=== PATIENT | male | born 1965 | race Caucasian/White ===

== ENCOUNTER 2020-10-24 09:28 | Outpatient (CLI) | payer BC, SELFPAY ==
--- NOTE | 2020-10-24 09:32 | EST_ITS ---
Patient Info Name: Víctor Del Toro Age: 54 years : 1965 Gender: Male Ht: 71 in Wt: 187 lbs BSA: 2.07 m2 Exam Date: 10/24/2020 10:14 AM Exam Location: [facility] Pulmonary Patient Status: Outpatient Admit Date: 10/24/2020 Staff Ordering Physician: Charles Begum DO [employer]: Abram Stacy RDCS, RT Attending Provider: FORTUNATO CAGLE Referring Physician: Shy CUNNINGHAM; Exercise Technologist: Abram Stacy RDCS, RT Exercise Physician: Fortunato aCgle DO Exam Type: CA stress echo Study Info Indications R06.00 - Dyspnea, unspecified Treadmill exercise stress echocardiogram is performed. Summary 1. 1. Negative Luis Enrique exercise stress test for ischemic ST changes by ECG criteria. 2. 2. Good functional capacity, achieving 17 METs of workload. 3. 3. Appropriate HR response to exercise. 4. 4. Appropriate HR recovery at 1 minute post exercise. 5. 5. Negative stress echocardiogram for ischemia by wall motion analysis. 6. 6. Patient informed of the above results. Stress Echo Findings Left Ventricle Appropriate increase in LV endocardial thickening with systole. Appropriate augmentation of contractility with systole. No wall motion abnormality. Left Ventricle Normal LV systolic function, no wall motion abnormality. Protocol: Luis Enrique Stress ECG Details Stage: REST Duration (min): 1 min : 12 sec Speed (mph): 0.0 Grade (%): 0 HR (bpm): 52 SBP (mmHg): 111 DBP (mmHg): 74 METS: --- Stage: REST Duration (min): 1 min : 20 sec Speed (mph): 0.0 Grade (%): 0 HR (bpm): 53 SBP (mmHg): 111 DBP (mmHg): 74 METS: --- Stage: REST Duration (min): 9 min : 33 sec Speed (mph): 0.0 Grade (%): 0 HR (bpm): 52 SBP (mmHg): 111 DBP (mmHg): 74 METS: --- Stage: STAGE 1 Duration (min): 1 min : 0 sec Speed (mph): 1.7 Grade (%): 10 HR (bpm): 81 SBP (mmHg): 111 DBP (mmHg): 74 METS: --- Stage: STAGE 1 Duration (min): 2 min : 0 sec Speed (mph): 1.7 Grade (%): 10 HR (bpm): 93 SBP (mmHg): 111 DBP (mmHg): 74 METS: --- Stage: STAGE 1 Duration (min): 3 min : 0 sec Speed (mph): 1.7 Grade (%): 10 HR (bpm): 96 SBP (mmHg): 156 DBP (mmHg): 74 METS: --- Stage: STAGE 2 Duration (min): 1 min : 0 sec Speed (mph): 2.5 Grade (%): 12 HR (bpm): 102 SBP (mmHg): 156 DBP (mmHg): 74 METS: --- Stage: STAGE 2 Duration (min): 2 min : 0 sec Speed (mph): 2.5 Grade (%): 12 HR (bpm): 108 SBP (mmHg): 152 DBP (mmHg): 75 METS: --- Stage: STAGE 2 Duration (min): 3 min : 0 sec Speed (mph): 2.5 Grade (%): 12 HR (bpm): 111 SBP (mmHg): 152 DBP (mmHg): 75 METS: --- Stage: STAGE 3 Duration (min): 1 min : 0 sec Speed (mph): 3.4 Grade (%): 14 HR (bpm): 114 SBP (mmHg): 164 DBP (mmHg): 73 METS: --- Stage: STAGE 3 Duration (min): 2 min : 0 sec Speed (mph): 3.4 Grade (%): 14
== END 2020-10-24 09:29 | disposition home or self-care (01) ==
PROVIDERS: Family Provider Internal Medicine; PCP Internal Medicine; Visit Provider Internal Medicine
DX: R06.00 Dyspnea, unspecified (principal)
CPT/HCPCS: 93351

== ENCOUNTER 2021-01-03 10:37 | Outpatient (CLI) | payer BC, SELFPAY ==
--- NOTE | ~2021-01-03 | CT_ITS ---
EXAMINATION: CT BRAIN W/O DATE: 01/03/2021 11:20 INDICATION: Nonspecific mental disorder TECHNIQUE: Computed tomography (CT) of the head was performed without and with 100 cc Omnipaque 350 i ntravenous contrast. The dose-length product was 1362.00 mGy-cm. Automated exposure control and itera tive reconstruction technique were employed. COMPARISON: No prior studies for comparison. FINDINGS: Normal brain parenchymal volume for age. Normal caballero-white differentiation. No acute intrac ranial hemorrhage, infarction, mass or mass effect. No abnormal contrast enhancement. No ventriculomegaly or midline shift. Midline sagittal images demonstrate a normal corpus callosum, c raniovertebral junction and sella turcica. Basilar cisterns are patent. Paranasal sinuses and mastoids are pneumatized. No depressed skull fractures. IMPRESSION: 1. No significant intracranial abnormality. Reviewed, dictated and finalized at location B.
== END 2021-01-03 10:38 | disposition home or self-care (01) ==
PROVIDERS: PCP Internal Medicine; Visit Provider Internal Medicine
DX: F48.8 Other specified nonpsychotic mental disorders (principal); R41.3 Other amnesia; R51.9 Headache, unspecified
CPT/HCPCS: 70470; Q9967

== ENCOUNTER → 2021-05-04 01:02 | Outpatient (CLI) | payer BC, SELFPAY ==
[2021-05-04 18:26] LABS: SARS-CoV-2 RNA PCR Negative
== END ==
PROVIDERS: PCP Internal Medicine; Visit Provider Internal Medicine Gastroenterology
DX: Z01.812 Encounter for preprocedural laboratory examination (principal); Z20.822 Contact with and (suspected) exposure to COVID-19
CPT/HCPCS: C9803; U0003; U0005

== ENCOUNTER 2021-05-08 01:35 | Day surgery (SDC) | payer BC, SELFPAY ==
[2021-04-25 15:38] VITALS: BMI 25.8
[2021-05-08 11:07] VITALS: BP 99/69; PULSE 58; RESP 16; TEMP 36; O2SAT 100; BMI 25.9
[2021-05-08] MEDS: LACTATED RINGERS 1,000 ML 150 ML IV CONT (11:26)
--- NOTE | 2021-05-08 11:48 | WPDANESEPPF ---
Anes - Initial Pre Proc Eval Procedure: Operation Date: 05/08/21 12:00 Proposed Procedures p Screening Colonoscopy - Alcon Kamara MD Date/Time: 05/08/21 11:48 Surgeon: Alcon Kamara MD Pre Op Diagnosis: hx of colon polyps Patient Data Age: 55 Gender: M Height: 1.8 m Weight: 84.6 kg Last Vital Signs Temp 36.0 C L 05/08/21 11:07 Pulse 58 L 05/08/21 11:07 Resp 16 05/08/21 11:07 BP 99/69 L 05/08/21 11:07 Pulse Ox 100 05/08/21 11:07 Allergies Allergy/AdvReac Type Severity Reaction Status Date / Time cortisone Allergy Mild Hives, Verified 05/08/21 11:07 anaphylatic shock Home Medications Medication Instructions Recorded Confirmed Type multivitamin 1 tablet PO DAILY 09/27/19 05/08/21 History lactobacillus combination no.8 1 cell PO DAILY 04/25/21 05/08/21 History [Adult Probiotic] Patient hx anesthesia problems: none Family hx anesthesia problems: none PMFSH Past Medical History Medical History (Updated 05/08/21 @ 11:55 by Malik Schmitz MD) FULTON (dyspnea on exertion) Hx of hypercholesterolemia Prostate cancer Family History Family History Sibling Family history of multiple sclerosis Father Malignant neoplasm of prostate Mother , Passed of Heart attack. Hypertension Acute myocardial infarction Social History Social History Smoking status: Never smoker Second hand tobacco smoke exposure: No Alcohol intake: current Substance use: never Living arrangements: alone Spiritual care concerns: No Anes - Eval Final PreProcedure Day of Procedure 05/08/21 11:48 Patient weight: normal Heart: regular rate and rhythm Lungs: clear to auscultation and normal air movement Airway: Mallampati scale class II Neurological: alert and oriented Last oral intake: >/= 8 hours ASA classification: II Emergent: no Anesthetic plan: proceed Anesthesia type and monitoring: general GIVS Informed Consent: The patient's anesthetic plan and its attendant risks and benefits were discussed with the patient/family/POA. Questions were solicited and answers provided to the satisfaction of the patient/family/POA.
[2021-05-08 12:32] VITALS: BP 92/60; PULSE 66; RESP 18; O2SAT 98
[2021-05-08 12:42] VITALS: BP 118/75; PULSE 76; RESP 20; O2SAT 99
[2021-05-08 12:52] VITALS: BP 115/78; PULSE 72; RESP 20; O2SAT 100
--- NOTE | 2021-05-13 12:57 | PM.HPGS ---
History of Present Illness History of Present Illness Consent: Risks, benefits, and alternatives have been discussed and questions answered. Patient agrees to proceed with procedure. Chief complaint: hx of colon polyps Narrative: Víctor Del Toro is a 55 year old male referred for colon cancer screening. He does have a history of polyps. Review of Systems Review of Systems: All systems reviewed & are unremarkable except as noted in HPI and below PMFSH Past Medical History Medical History FULTON (dyspnea on exertion) Hx of hypercholesterolemia Prostate cancer Family History Family History Sibling Family history of multiple sclerosis Father Malignant neoplasm of prostate Mother , Passed of Heart attack. Hypertension Acute myocardial infarction Social History Social History Smoking status: Never smoker Second hand tobacco smoke exposure: No Alcohol intake: current Substance use: never Spiritual care concerns: No Meds Home Medications and Allergies Home Medications Medication Instructions Recorded Confirmed Type multivitamin 1 tablet PO DAILY 09/27/19 05/08/21 History lactobacillus combination no.8 1 cell PO DAILY 04/25/21 05/08/21 History Allergies Allergy/AdvReac Type Severity Reaction Status Date / Time cortisone Allergy Mild Hives, Verified 05/08/21 11:07 anaphylatic shock Exam Resp: Auscultation: clear to auscultation bilaterally Cardio: Rate: regular rate Rhythm: regular rhythm GI: GI Palp: Yes Soft to palpation and No Tenderness to palpation present (GI) Assessment and Plan Assessment and plan (1) Colon cancer screening: Code(s): Z12.11 - Encounter for screening for malignant neoplasm of colon Status: Acute Assessment and Plan: Colonoscopy with possible biopsy or polypectomy or cautery or injection of substances.
== END 2021-05-08 13:08 | disposition home or self-care (01) ==
PROVIDERS: PCP Internal Medicine; Visit Provider Internal Medicine Gastroenterology
PROC: 0DJD8ZZ Inspection of Lower Intestinal Tract, Via Natural or Artificial Opening Endoscopic (ICD-10-PCS; CPT 45378; principal; 2021-05-08 12:00)
DX: Z12.11 Encounter for screening for malignant neoplasm of colon (principal); Z86.010 Personal history of colon polyps; Z85.46 Personal history of malignant neoplasm of prostate
CPT/HCPCS: 45378; J2704; J7120

== ENCOUNTER 2021-05-10 09:44 | Outpatient (CLI) | payer BC, SELFPAY ==
--- NOTE | ~2021-05-10 | CT_ITS ---
EXAMINATION: CT abdomen pelvis w con INDICATION: Prostate cancer TECHNIQUE: Computed tomographic images of the abdomen and pelvis were obtained after the administrati on of 100 cc of Omnipaque 350 intravenous contrast. The dose-length product (DLP) was 436.35 mGy-cm. Automated exposure control and iterative reconstruction technique were employed. COMPARISON: 07/25/2015 11/21/2010 FINDINGS: The lung bases are clear. The heart size is normal. There is a 1.2 cm hemangioma in the rig ht hepatic lobe. The spleen, pancreas, gallbladder, and adrenal glands are normal. The kidneys are un remarkable. No pathologically enlarged abdominal or pelvic lymph nodes are identified. There is no fr ee intraperitoneal gas or evidence of bowel obstruction. A moderate volume of colonic stool is presen t. 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 There is mild lumbar spondylosis. IMPRESSION: 1. No evidence of metastatic disease. Reviewed, dictated and finalized at location A.
--- NOTE | ~2021-05-10 | NM_ITS ---
EXAMINATION: NM bone scan whole body DATE: 05/10/2021 13:35 INDICATION: Posterior cancer. TECHNIQUE: 5.8 mCi Tc-99m HDP was administered intravenously. Delayed whole-body scintigrams were ob tained. COMPARISON: Bone scan dated 07/25/[address] dated 05/10/2021 FINDINGS: Persistent small focus of increased uptake at the left hip more prominent on the posterior projection at the ischial tuberosity which corresponds to a small region of heterotopic ossification. Otherwise physiologic distribution of bone and soft tissue uptake. IMPRESSION: 1. No evident osseous metastatic disease. Reviewed, dictated and finalized at location A.
== END 2021-05-10 09:45 | disposition home or self-care (01) ==
PROVIDERS: PCP Internal Medicine; Visit Provider Urology
DX: C61 Malignant neoplasm of prostate (principal)
CPT/HCPCS: 74177; 78306; A9561; Q9967